=== PATIENT | male | born 1990 | race Caucasian/White ===

== ENCOUNTER 2021-04-08 17:13 | Emergency (ER) | payer SELFPAY ==
[~2021-04-08] VITALS: Ht 170.2 cm; Wt 72.3 kg
[2021-04-08 17:13] VITALS: BP 160/97
== END 2021-04-08 17:58 | disposition left against medical advice (07) ==
LOC: ER 17:13
DX: F41.9 Anxiety disorder, unspecified (principal); Z53.21 Procedure and treatment not carried out due to patient leaving prior to being seen by health care provider